=== PATIENT | female | born 1985 | race Caucasian/White ===

== ENCOUNTER → 2016-07-09 | Outpatient (CLI) | payer MEDICAID ==
[~2016-07-09] MED LIST: BENTYL10 M1 PO; BUSPIRONE HCL15 MG PO; CIPRO 500MG TA500 MG PO; CLONAZEPAM 1MG T1 MG PO; CLONAZEPAM0.5 M1 PO; FLAGYL 500MG.500 MG PO; FLEXERIL10 MG PO; HYOSCYAMINE0.375 M2 PO; LITHIUM CARBON300 M2 PO; MONTELUKAST SOD10 MG PO; NICODERM C21 MG/24 H TD; NORCO 325 MG-51 TAB PO; PERCOGESIC1 TAB PO; PHENERGAN 25MG.25 M1 PO; PROMETHAZINE HC25 M1 PO; QUETIAPINE FUM100 M2 PO; QUETIAPINE FUM100 MG PO; SEROQUEL 25MG T25 MG PO; SEROQUEL400 MG PO; TRAMADOL 50MG T50 MG PO; TRAMADOL50 M1 PO; Tri-Sprintec 281 TAB PO; VISTARIL25 M1 PO; ZITHROMAX Z PA250 MG PO; ZOFRAN 8MG TABLE8 MG PO; ZOFRAN ODT4 MG PO
[2016-07-09 15:35] LABS: LYMPH # 1.6 K/mm3 (0.7-4.5)
[2016-07-09 15:41] LABS: HEMOGLOBIN 12.4 g/dL (12.2-16.2)
[2016-07-09 16:12] LABS: ABO BLOOD TYPE AB; RH BLOOD TYPE POSITIVE
[2016-07-11 06:39] LABS: HIV Screen 4th Generation wRfx Non Reactive (Non Reactive)
[2016-07-11 09:38] LABS: Rapid Plasma Reagin, Quant Non Reactive (NonRea<1:1); Rubella Antibodies, IgG <0.90 index (Immune >0.99)
[2016-07-11 10:40] LABS: HBsAg Screen Negative (Negative)
== END ==
LOC: LAB 14:54
PROVIDERS: Nurse Practitioner Obstetrics & Gynecology
DX: Z34.80 Encounter for supervision of other normal pregnancy, unspecified trimester (principal)
CPT/HCPCS: G0432; G6040

== ENCOUNTER → 2016-10-09 | Outpatient (CLI) | payer MEDICAID ==
--- NOTE | 2016-10-09 16:30 | RADIOLOGY REPORT PS360 ---
US PREG COMP: INDICATION: ANATOMY OB US , 20 week gestation evaluation ORDERING PHYSICIAN: Hipolito Quinones MD PATIENT AGE: 31 years TECHNIQUE: ultrasound transabdominal scanning. COMPARISON: No previous relevant studies. FINDINGS: Single viable intrauterine gestation. Cephalic position. Placenta: Anterior placenta grade 1. There is average amount fluid. The cervix appears satisfactory. Closed and measuring 4 cm in length. Complete survey performed and was unremarkable on the submitted images as in PACS. No discrete anomalies identified on survey imaging by technologist. Active fetus. Three-vessel cord with satisfactory umbilical cord insertion. 4- chamber heart noted. Survey of brain & ventricles. Face and neck survey unremarkable. Diaphragm and chest views unremarkable. Abdomen: Both kidneys noted and unremarkable. Stomach noted and satisfactory. Spine: Survey of the spine satisfactory with no anomalies identified nor imaged. Both arms and legs noted. Amniotic Fluid: Adequate. Maternal adnexa: No significant findings. Measurements: Average ultrasound age 21 weeks 0 days. Gestational Age 20 weeks 1 day. Estimated due date by ultrasound age 902/19/2017. Estimated weight 392 grams. BPD = 20 weeks 5 days OFD = 21 weeks 4 days HC = 20 weeks 5 days AC = 20 weeks 2 days FL = 22 weeks 1 day Heart Rate = 150 BPM Cerebellum = 19 weeks 3 days Humerus = 20 weeks 4 days HC/AC is 1.21. CI is 75%. FL/BPD is 78%. FL/AC is 25%. IMPRESSION: Single live fetus at 21 weeks 0 days gestation in cephalic presentation. No obvious anomalies. Anterior placenta without previa. Please see above for detail
[2016-10-09 16:53] LABS: AMPHETAMINES/METAMPHETAMINES NEGATIVE ng/mL (<1000)
[2016-10-17 12:37] LABS: Alprazolam Negative (Cutoff=100); Benzodiazepines Positive ng/mL (Cutoff=100); Clonazepam Positive (.); Clonazepam Confirm 192 ng/mL (Cutoff=100); Flurazepam Negative (Cutoff=100); Lorazepam Negative (Cutoff=100); Midazolam Negative (Cutoff=100); Temazepam Negative (Cutoff=100); Triazolam Negative (Cutoff=100)
== END ==
LOC: RAD 12:14 → LAB 12:14 → RAD 13:00
PROVIDERS: Emergency Medicine; Nurse Practitioner Obstetrics & Gynecology
DX: Z36 Encounter for antenatal screening of mother (principal); Z79.899 Other long term (current) drug therapy
CPT/HCPCS: G0480

== ENCOUNTER → 2017-01-21 | Outpatient (CLI) | payer MEDICAID | LOC: LAB 17:16 | DX: Z34.80 Encounter for supervision of other normal pregnancy, unspecified trimester (principal) ==

== ENCOUNTER 2017-02-19 02:03 | Inpatient (IN) | payer MEDICAID ==
[~2017-02-19] VITALS: Ht 170.2 cm; Wt 97.1 kg
[2017-02-19 06:03] LABS: HEMOGLOBIN 11.1 g/dL (12.2-16.2); LYMPH # 2.1 K/mm3 (0.7-4.5); LYMPH % 22.4 % (10-50.0)
[2017-02-19 06:15] VITALS: BP 128/74
[2017-02-19] MEDS ORDERED: ZANTAC 150150 MG PO (06:25)
[2017-02-19] MEDS ORDERED: FLINTSTONES T100 MCG PO (06:25)
[2017-02-19 06:37] LABS: ABO BLOOD TYPE AB; RH BLOOD TYPE POSITIVE
--- NOTE | 2017-02-19 07:58 | LABOR NOTE ---
Laboring Subjective Subjective Date 02/19/17 Time 0756 Subjective: Pt is having regular contractions Laboring Objective Objective NST: Reactive Contractions: q 2-3 minutes Cervical dilation: 2 Effacement: 75% Station: -2 Membranes are: Artificially ruptured (with clear fluid) Fetus monitoring? Yes Type: External Laboring Assessment Assessment Progressing? Yes Cephalopelvic disproportion? No Problem List: 1. Normal delivery Laboring Plan Plan Anethesia for epidural? Yes Continue to labor down? Yes Plan for ? No Continue to monitor? Yes Start pushing? No at 0758
--- NOTE | 2017-02-19 11:02 | LABOR NOTE ---
Laboring Subjective Subjective Date 02/19/17 Time 1100 Subjective: Pt is having regular contractions Laboring Objective Objective NST: Reactive Contractions: q 2-3 minutes Cervical dilation: 2-3 Effacement: 75% Station: -1 Membranes are: Artificially ruptured (with clear fluid) Fetus monitoring? Yes Type: External Laboring Assessment Assessment Progressing? Yes Cephalopelvic disproportion? No Problem List: 1. Normal delivery Laboring Plan Plan Anethesia for epidural? Yes Continue to labor down? Yes Plan for ? No Continue to monitor? Yes Start pushing? No at 1101
[2017-02-19 11:14] VITALS: BP 130/62
--- NOTE | 2017-02-19 13:37 | LABOR NOTE ---
Laboring Subjective Subjective Date 02/19/17 Time 1335 Subjective: Pt is having regular contractions Laboring Objective Objective NST: Reactive Contractions: q 2-3 minutes Cervical dilation: 4 Effacement: 75% Station: -1 Membranes are: Artificially ruptured Fetus monitoring? Yes Type: External Laboring Assessment Assessment Progressing? Yes Cephalopelvic disproportion? No Problem List: 1. Normal delivery Laboring Plan Plan Anethesia for epidural? Yes Continue to labor down? Yes Plan for ? No Continue to monitor? Yes Start pushing? No at 1332
[2017-02-19 14:42] LABS: AMPHETAMINES/METAMPHETAMINES NEGATIVE ng/mL (<1000)
--- NOTE | 2017-02-19 16:14 | LABOR NOTE ---
Laboring Subjective Subjective Date 02/19/17 Time 1611 Subjective: Pt is having regular contractions Laboring Objective Objective NST: Reactive Contractions: q 2-3 minutes Cervical dilation: 4 Effacement: 75% Station: -1 Membranes are: Artificially ruptured Fetus monitoring? Yes Type: External Laboring Assessment Assessment Progressing? No Cephalopelvic disproportion? Yes Problem List: 1. Normal delivery Laboring Plan Plan Anethesia for epidural? Yes Continue to labor down? Yes Plan for ? Yes Continue to monitor? Yes Start pushing? No Comment: She really has not change her cervix throughout the day. She's got to 4 cm. I'm not sure whether there is pelvic disproportion or possibly the baby is OP. It's also possible that the baby is asynclitic. She is in considerable pain and I don't believe that her epidural is working very well. We will redo her epidural. I've also given her one dose of Stadol 1 mg. It's been almost 6 hours since she reached 4 cm periods is her second baby and since she has not really progressed we will consider a . The nonstress test is reactive and there is no distress at this point in time. We will reexamine her in the next hour or so. at 1617
--- NOTE | 2017-02-19 17:33 | LABOR NOTE ---
Laboring Subjective Subjective Date 02/19/17 Time 1730 Subjective: Pt is having regular contractions Laboring Objective Objective NST: Reactive Contractions: q 2-3 minutes Cervical dilation: 4 Effacement: 75% Station: -1 Membranes are: Artificially ruptured Fetus monitoring? Yes Type: External Laboring Assessment Assessment Progressing? No Cephalopelvic disproportion? Yes Problem List: 1. Fetopelvic disproportion Laboring Plan Plan Anethesia for epidural? Yes Continue to labor down? No Plan for ? Yes Continue to monitor? Yes Start pushing? No Comment: She has really not progress beyond 4 cm all day. She is still very uncomfortable with her epidural despite being bolused multiple times. We will go ahead with a for fetopelvic is proportion. I discussed the risks of surgery that includes bleeding, infection, injuries to the bowel and bladder. We discussed the rare risk of DVT. All questions were answered and consents were signed. at 1737
--- NOTE | 2017-02-19 19:07 | Operative Note ---
Procedure/Operative Record Procedure Date of procedure: 02/19/17 Pre-Op Dx: Fetopelvic disproportion, desire for sterilization Post-Op Dx: Fetopelvic disproportion, desire for sterilization Procedure performed: Primary lower segment transverse section, bilateral salpingectomy Surgeon: Dr. Hipolito Quinones Carriage Dogger(s): Dr. Garza Anesthesia: Otis Ken EBL (ml): 600 Clinical note: She is a 31-year-old 2 para 1 who was 39+ weeks gestational age. She had lots of pressure and occasional contractions and as result of that we elected to augment her labor. She was started on IV oxytocin had her membranes ruptured and really failed to progress beyond 4 cm despite having regular contractions all day long. The baby's head remained high and there was significant molding and the cervix did not change. As result of that we elected to perform a primary lower segment transverse section for fetopelvic disproportion. She also had expressed a desire for sterilization. we were planning to do a tubal in 6 weeks however since we were doing an urgent section we elected to perform her bilateral salpingectomy at the time of . The risk and benefits of surgery as well as the irreversibility of bilateral salpingectomy were discussed with the patient prior to surgery. Operative findings: She delivered a live-born female child at 6:28 PM in the evening of February. The baby had Apgars of 8 at 1 minute and 9 at 5 minutes. PH was 7.37. Tubes and ovaries appeared normal. The uterus itself was quite boggy post delivery consistent with contractions that were not efficient. Operative note: She was taken to the operating room where epidural anesthesia was found be adequate. She was prepped and draped in normal sterile fashion in the supine position with a leftward tilt. A Duckworth catheter was in the bladder. A Pfannenstiel skin incision was made with knife then carried through to the underlying layer of fascia with cautery. The fascia was opened in the midline with cautery and extended laterally using Fernandez scissors. [place] clamps were applied to the superior aspect of the fascial incision which was tented up and the underlying rectus muscles dissected off using cautery. The [place] clamps were then applied to the inferior aspect of the fascial incision which in a similar fashion was tented up and the underlying rectus muscles dissected off using cautery. The rectus muscles were then in the midline, the peritoneum identified, and entered sharply with Metzenbaum scissors. This incision was then extended superiorly and inferiorly with cautery. We had good visualization of the bladder inferiorly. The bladder peritoneum was then opened in the midline and extended laterally using Metzenbaum scissors. A bladder flap was created digitally. The lower blade of the Matt was inserted so as to push the bladder out of the way. Transverse incision was made through the uterine muscle to the amnion. This incision was then extended laterally using fingers traction. The amnion was entered sharply with knife. The 's head was then delivered atraumatically. This was followed by the anterior shoulder and the rest of the infant's body atraumatically. The oropharynx and nasopharynx were bulb suctioned. The was then handed off to Dr. Yost who assigned Apgars of 8 at 1 minute and 9 at 5 minutes. We then obtained cord blood as well as cord pH. The pH was 7.37. Using gentle traction on the cord and countertraction on the fundus I was able to easily deliver the placenta intact. It had a normal three-vessel cord. The uterus was then cleared of clots and debris and exteriorized from the abdominal cavity. The uterine incision was then closed using running 0 Vicryl suture in a locked fashion. A second layer of the same suture was used to imbricate the first layer. The bladder peritoneum was then closed using running 2-0 Vicryl suture in a locked fashion. I then performed a bilateral salpingectomy by first cauterizing through the tube close to the cornua. I then cauterized along the meso salpinx with the side of the blade of the cautery. This was performed all along the nasal salpinx to the fimbriated end of the tube. The tube was thus completely removed. This was similarly performed on the patient's opposite side. It was noted that the uterus was quite boggy so elected perform a B Bergman suture. Using #1 Vicryl suture I took a large bite of tissue just above the incision on the uterus. I passed this over the posterior aspect of the uterus and took 2 large bites posteriorly. I then pass a suture once again anteriorly and took another bite adjacent to the first bite. The suture was then cinched down and tied. The gutters and cul-de-sac were then cleared of clots and debris and the uterus was returned the abdominal cavity. Once again hemostasis was assured. The peritoneum was grasped with Maru clamps and closed using running 2-0 Vicryl suture. The rectus muscles were then reapproximated using running 0 Vicryl suture. The fascia was closed using running #1 Vicryl suture. The subcutaneous tissues were then irrigated with warm water followed by closure Simran's fascia using running 2-0 Monocryl suture. The skin was closed with elliott. I then cleaned the skin with Hibiclens once again. Sterile dressings were applied. She tolerated the procedure well and was taken to the recovery room in excellent condition. All sponges minute and needle counts were correct. Estimate a blood loss was approximately 600 mL. Conplications: None Specimens: Proximal of conception, bilateral fallopian tubes at 0916
--- NOTE | 2017-02-19 19:09 | Anesthesia Record ---
Anesthesia Record Part I Total IV fluids: 1000 EBL (ml): 600 Urine Output: 30 B/P: 125/44 % SaO2: 99 Pulse: 99 Resps: 18 Temp: 98.6 Patient is: Awake, Stable Stable to PACU at: 1905 at 1909
--- NOTE | 2017-02-19 19:10 | Anesthesia Record ---
Anesthesia Record Part II Discharge time: 1934 Destination: OB PACU nurse assessment review? Yes Patient is: Stable Anesthesia complications? No at 1910
[2017-02-19 19:48] VITALS: BP 128/61
[2017-02-20 07:02] LABS: HEMOGLOBIN 9.7 g/dL (12.2-16.2)
--- NOTE | 2017-02-20 07:40 | PHARMACY CLINIC NOTE ---
Patient Demographics Patient Demographics Admission date: 02/19/17 Date: 02/20/17 Time: 0740 Allergies Coded Allergies: Sulfa (Sulfonamide Antibiotics) (Mild, 02/19/17) ibuprofen (Mild, 02/19/17) penicillin G (Mild, 02/19/17) NSAIDS (Non-Steroidal Anti-Inflamma (02/19/17) latex (HIVES/RASH 02/19/17) HEIGHT- FT: 5 IN: 7.00 K.070 VTE General Information Labs: Laboratory Tests 02/20 06 Hematology Hgb (12.2 - 16.2 g/dL) 9.7 L Hct (37.0 - 47.0 %) 28.0 L Disclaimer The following section includes nursing documentation that has been pulled in for pharmacy review. VTE prophylaxis NQF [id number] VTE prophylaxis ordered? Yes Type of prophylaxis/treatment: ICD at 0740
--- NOTE | 2017-02-20 08:47 | ACUTE CARE PROGRESS NOTE (QUA) ---
Progress Notes Subjective Date 02/20/17 Time 0844 Note She is doing well this morning. She is eating and drinking and ambulating. She is breast-feeding. Her pain is resuming well-controlled we will change to a slightly stronger narcotic. Patient/family reports: feeling better, pain Objective Findings Last VS-Temp:98.4 B/P:131/60 Pulse:90 Resp:18 SaO2:100 ROOM AIR Last weight lbs:214 oz:0 K.070 Method:Stated Laboratory Tests 02/20/17 0605: Hgb 9.7 L, Hct 28.0 L 02/19/17 1829: Cord Blood pH 7.38 02/19/17 0907: Opiates Screen NEGATIVE, Urine Methadone Screen NEGATIVE, Barbiturates NEGATIVE, Phencyclidine Screen NEGATIVE, Amphetamines Screen NEGATIVE, Benzodiazepines Screen NEGATIVE, Cocaine Screen NEGATIVE, Marijuana (THC) Screen POSITIVE H Exam General appearance: normal appearance, alert, awake, no acute distress Reviewed: vital signs, lab results Assessment/Plan Problem List 1. Fetopelvic disproportion 2. Delivered by section 3. Tubal ligation status Patient condition Improving, Stable Plan: continue current care, make medication changes This inpt stay is expected to cross 2 MNs from start of care Yes Comments: She is doing well this morning. We will change her pain medicine. We willDISCHARGE HER HOME IN 2 DAYS. at 0846
[2017-02-20 09:30] VITALS: BP 136/70
[2017-02-20 09:40] LABS: URINE BILIRUBIN - DIPSTICK NEGATIVE (NEG); URINE BLOOD NEGATIVE (NEG)
[2017-02-20 09:41] LABS: URINE BILIRUBIN - DIPSTICK NEGATIVE (NEG); URINE BLOOD NEGATIVE (NEG)
[2017-02-20 09:51] LABS: URINE SQUAMOUS CELLS OCC #/hpf (0-5)
[2017-02-20 19:55] VITALS: BP 139/79
--- NOTE | 2017-02-21 08:02 | ACUTE CARE PROGRESS NOTE (QUA) ---
Progress Notes Subjective Date 02/21/17 Time 0801 Note She is doing much better. She is eating and drinking and ambulate eating. Her pain is improving. Continues to have anxiety. I started her on Xanax 1 mg 3 times a day yesterday. Patient/family reports: feeling better, no complaints Objective Findings Last VS-Temp:98.2 B/P:139/79 Pulse:93 Resp:20 SaO2:100 ROOM AIR Last weight lbs:214 oz:0 K.070 Method:Stated Exam General appearance: normal appearance, alert, awake, no acute distress Reviewed: vital signs, lab results Assessment/Plan Problem List 1. Fetopelvic disproportion 2. Delivered by section 3. Tubal ligation status Patient condition Improving, Stable Plan: continue current care This inpt stay is expected to cross 2 MNs from start of care Yes Comments: She seems to be doing a little better this morning. She is still somewhat anxious. Her pain is improved. We will encourage her to ambulate. at 0802
[2017-02-21 08:45] VITALS: BP 131/73
[2017-02-21 20:00] VITALS: BP 150/77
[2017-02-22 08:52] VITALS: BP 138/72
--- NOTE | 2017-02-22 10:24 | ACUTE CARE PROGRESS NOTE (QUA) ---
Progress Notes Subjective Date 02/22/17 Time 1022 Note She is doing well this morning. She is eating and drinking and ambulating. She is bottle and breast-feeding. Her lochia is normal. Her pain is reasonably well- controlled. Patient/family reports: feeling better, no complaints Objective Findings Last VS-Temp:97.9 B/P:138/72 Pulse:81 Resp:18 SaO2:100 ROOM AIR Last weight lbs:214 oz:0 K.070 Method:Stated Exam General appearance: normal appearance, alert, awake, no acute distress Reviewed: vital signs, lab results Assessment/Plan Problem List 1. Fetopelvic disproportion 2. Delivered by section 3. Tubal ligation status Patient condition Improving, Stable Plan: continue current care, initiate discharge plan This inpt stay is expected to cross 2 MNs from start of care Yes Comments: She is doing well this morning. Her baby has staph on a blood culture. The baby will be started on antibiotics. We will discharge her home and she will continue to stay here to look after the baby's as an outpatient at 1023
--- NOTE | 2017-02-22 10:27 | Discharge Summary ---
Discharge Summary Admission date: 02/19/17 Discharge date: 02/22/17 Discharge diagnoses: Term , pelvic disproportion, desire for sterilization Clinical note: She is a 31-year-old 2 now para 2 who was 39 weeks gestational age. She was having lots of pressure and discomfort and as result of that we elected to augment her labor. Course in hospital: She was started on IV oxytocin and had her membrane was ruptured. She really failed to progress beyond 4 cm. This was despite having regular painful contractions throughout the entire day. As result of that fetopelvic disproportion was diagnosed and she was taken for a primary lower segment transverse section. She delivered a live-born female child at 6:20 PM on the evening of February. The baby was a liveborn female child weighing 8 lbs. 6 oz. with Apgars of 8 at 1 minute and 9 at 5 minutes. She also had a bilateral salpingectomy at the time of section. She has done well postoperatively and has remained afebrile throughout her hospitalization. She is eating and drinking and ambulating. She is breast and bottle feeding. Plans for ongoing care: She is discharged home to follow-up in approximately 2 weeks' time. Discharge medications She will continue with her vitamins and iron. She was given a pressure for hydromorphone 2 mg take 1 tablet every 4 hours as needed for pain. DC/follow-up instructions She was given the usual instructions with respect to limiting her activity, driving and sexual activity. She was given instructions with respect to wound care. Condition at discharge Stable and improved at 7700
[2017-02-22] MEDS ORDERED: HYDROMORPHONE2 MG PO (10:28)
== END 2017-02-22 13:30 | disposition home or self-care (01) | DRG 766 ==
LOC: OB 02:03
PROVIDERS: Nurse Practitioner Obstetrics & Gynecology
PROC: 10D00Z1 Extraction of Products of Conception, Low, Open Approach (ICD-10-PCS; principal; 2017-02-19 18:00)
PROC: 0UT70ZZ Resection of Bilateral Fallopian Tubes, Open Approach (ICD-10-PCS; principal; 2017-02-19 18:00)
DX: O65.4 Obstructed labor due to fetopelvic disproportion, unspecified (principal); O61.0 Failed medical induction of labor; Z3A.39 39 weeks gestation of pregnancy; Z37.0 Single live birth
CPT/HCPCS: G0238; J0595

== ENCOUNTER 2017-03-03 14:13 | Emergency (ER) | payer MEDICAID ==
[~2017-03-03] VITALS: Ht 170.2 cm; Wt 86.2 kg
[~2017-03-03 14:13] MED LIST changes: +FLINTSTONES T100 MCG PO; +HYDROMORPHONE2 MG PO; +ZANTAC 150150 MG PO
--- NOTE | 2017-03-03 15:08 | Emergency Room Report ---
History of Present Illness Time Seen by MD Segura Presenting Problem in Triage Pt arrived:Walked Presenting Problem:BILAT SWOLLEN FEET AND HYPERTENSIVE Onset of symptoms date/time:/ or onset unknown for:MEDICAL HX UNKNOWN Treatment Prior to Arrival: IRON ERECTOR Provided by: Sepsis Risk Assessment: Temp: 97.8 B/P: 167/89 MAP: 115 Pulse: 77 Resp: 18 Recent fever? N Clinical Suspician of Infection? N Mental Status: 1 - Regular (Normal Baseline) Sepsis Risk:Low Sepsis Risk Have you (or family members/close friends) recently traveled outside the [place]? N If Yes, where/when: Have you had exposure to infectious disease within the past month? TB? Other? Specify: ALLERGIES Coded Allergies: Sulfa (Sulfonamide Antibiotics) (Mild, 03/03/17) ibuprofen (Mild, 03/03/17) penicillin G (Mild, 03/03/17) NSAIDS (Non-Steroidal Anti-Inflamma (03/03/17) latex (HIVES/RASH 03/03/17) Home Medications Active Scripts Hydromorphone Hcl (Hydromorphone) 2 MG PO Q4HP PRN MODERATE TO SEVERE PAIN #30 TAB Prov: 02/22/17 Reported Medications Clonazepam (Clonazepam 0.5MG) 0.5 MG PO DAILY PRN ANXIETY #30 TAB QUETIAPINE FUMARATE (Quetiapine Fumarate) 300 MG PO QHS Pedi Multivit No.7/Folic Acid (Flintstones Tab Chew) 200 MCG PO DAILY Ranitidine Hcl (Zantac) 150 MG PO BID History Medical History General CAD? No Angina: No [place]: No Hypertension? No Hyperlipidemia? No CHF? No DVT? No PE? No COPD? No Asthma? No Anemia? No GERD? Yes Gastric ulcers? No GI Bleed? No Hernia? Yes Thyroid Problems? No Hypothyroidism? No CVA? No Seizures? Yes Diabetes? No Insulin Dependent: No Insulin Pump: No Home FSBS? No Renal Insuffiency? No End Stage Renal Disease? No UTI? No Stones? No BPH? No GB Disease: No Nephritic Syndrome? No Asplenia? No Hepatitis? No Sickle Cell Disease? No Arthritis? No Migraines? Yes Cataracts? No Glaucoma? No MRSA? No HIV? No TB? No Anxiety? Yes Depression? Yes Cancer? No More? 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 Respiratory no symptoms reported Cardiovascular no symptoms reported Gastrointestinal abdominal pain Genitourinary no symptoms reported. Musculoskeletal no symptoms reported Skin no symptoms reported Psychiatric/Neurological see HPI, anxiety, headache Physical Exam Vital Signs Vital Signs Date Time Temp Pulse Resp B/P Pulse O2 O2 Flow FiO2 Ox Delivery Rate 03/03 1704 72 22 150/86 95 03/03 1545 82 18 154/80 99 03/03 1431 97.8 77 18 167/89 98 Anxious and shaky (Edu GANDHI,[facility]) - WBC >12,000 or <4,000 or 10% bands? 2 or more SIRS Criteria Met? B/P:167/89 MAP:115 Creatinine >2.0? UA output<0.5ml/kg/hr for 2 hrs? Platelet count >100,000? Lactate >2.0mmol/1? INR >1.2 or PTT > than 60 sec? Evidence of Organ Dysfunction? Provider documented clinical suspician of infection? N Sepsis Criteria Count: 0 Sepsis Risk: Low Sepsis Risk 31 years old white female status post 2 weeks ago due to failure to progress. She continues to have abdominal pain no vomiting or diarrhea. She presented to the emergency room with a chief complaint of progressive bilateral leg edema in spite of diuretic therapy prescribed by Dr. Oscar her vice president research. She denies having shortness of breath chest pain. She complains of a headache General Appearance WD/WN, anxious and shaky Eye Exam - bilateral eye normal exam (no eyelid edema), bilateral eye PERRL, bilateral eye EOMI Ear, Nose, Throat hearing grossly normal, normal ENT inspection Neck normal inspection, non-tender, supple, full range of motion Respiratory Status Yes: trachea midline, chest symmetrical, non tender chest. No: respiratory distress. Lung Sounds bilateral: normal breath sounds, lungs clear. Cardiovascular normal exam, regular rate/rhythm, no peripheral edema, no gallop, no JVD, no murmur, no rub, normal peripheral pulses Peripheral Pulses Pulses normal Yes Gastrointestinal soft abdomen with lower abdominal tenderness well-healed C- section scar. rebound tenderness no guarding or rigidity. Back normal inspection, no CVA tenderness, no vertebral tenderness Extremities pedal edema, 3+ pedal edema and 2+ leg edema, no sacral edema. Neurologic alert, body and fender mechanic II-XII nml as tested, normal exam, oriented x 3 Reflexes Reflexes normal Yes Mental status normal mood/affect Skin intact, normal color, warm/dry Medical Decision Making LABS/Meds/Orders Pt receiving controlled substance in ED? No Results/Orders Laboratory Tests 03/03/17 1725: Urine Color STRAW, Urine Appearance CLEAR, Urine pH 7.0, Ur Specific [place] 1.010, Urine Protein NEGATIVE, Urine Ketones NEGATIVE, Urine Blood TRACE-LYSED, Urine Nitrate NEGATIVE, Urine Bilirubin NEGATIVE, Urine Urobilinogen 0.2, Ur Leukocyte Esterase NEGATIVE, Urine WBC OCC, Ur Squamous Epith Cells OCC, Urine Bacteria TRACE, Urine Glucose NEGATIVE 03/03/17 1520: Sodium 141, Potassium 3.1 L, Chloride 106, Carbon Dioxide 27, BUN 7, Creatinine 0.9, Estimated Creat Clear 125, Estimated GFR (MDRD) 74, Glucose 85, Calcium 8.9 , Total Bilirubin 0.7, AST 13 L, ALT 23, Alkaline Phosphatase 103, B- Natriuretic Peptide 123 H, Total Protein 7.1, Albumin 3.4, Globulin 3.7 H, Albumin/Globulin Ratio 0.9 L, PT 11.3, INR 1.05, APTT 27.5, WBC 6.8, RBC 3.59 L, Hgb 10.9 L, Hct 32.4 L, MCV 90.1, RDW 13.1, Plt Count 450 H, MPV 7.4, Gran % 64.4, Gran # 4.4, Lymphocytes % 28.7, Monocytes % 3.3, Eosinophils % 3.3, Basophils % 0.2, Lymphocytes # 2.0, Monocytes # 0.2, Eosinophils # 0.2, Basophils # 0.0, PUBS MCHC 33.7, MCH 30.4 Current Medication Orders Sig/Sheila Start time Last Medication Dose Route Stop Time Status Admin Potassium Chloride 0 .STK-MED ONE 03/03 1701 DC PO Acetaminophen 0 .STK-MED ONE 03/03 1700 DC PO Acetaminophen 650 MG ONCE ONE 03/03 1630 DC 03/03 PO 03/03 1631 1702 Iopamidol 75 ML ONCE ONE 03/03 1630 UNV 03/03 IV 03/03 1631 1608 Potassium Chloride 40 MEQ ONCE ONE 03/03 1630 DC 03/03 PO 03/03 1631 1702 Sodium Chloride 10 ML ONCE ONE 03/03 1630 UNV 03/03 IV 03/03 1631 1608 Sodium Chloride 10 ML PRN PRN 03/03 1515 AC IV 03/04 1515 Orders Procedure Date/time Status DIET-NOTHING BY MOUTH 03/[address] ABD & PELVIS W/ CONTRAST 03/03 1548 Active IV SALINE LOCK 03/03 1515 Active SERUM , QUAL 03/03 1513 Complete ELECTROCARDIOGRAM REQUEST 03/[address] ABD/PELVIS REQ 03/03 1510 Complete URINALYSIS/COMPLETE 03/03 1510 Complete PARTIAL THROMBOPLASTIN TIME 03/03 1510 Complete PROTHROMBIN TIME 03/03 1510 Complete CBC WITH AUTO DIFF 03/03 151 Complete CHEM 12 PROFILE 03/03 1510 Complete BRAIN NATRIURETIC PEPTIDE 03/03 1510 Complete 12 LEAD EKG-MAURO (INITIAL) 03/03 UNK Active CM/EKG CM/EKG EKG rate, NSR, rhythm, no evid. of ischemic chgs, no ectopy, normal QRS, normal MD, normal EKG, no EKG for comparison, non-spec. ST/Twave chgs, ST elevation, ST depression, LBBB, RBBB, ectopy, abnormal Q waves, normal sinus rhythm 63/m no acute findings Departure Departure Time of Disposition 1738 Disposition DC Home or Self Care(routine) Clinical Impression Primary Impression: Leg edema Secondary Impressions: Hypertension Condition STABLE Referrals Joni GANDHI,[facility]. Additional Instructions I discussed with Dr Bellamy her Vitals, exam and CT scan. She will be given [place] untll seen by him in 2 days . She was crying and tearful during her ED stay and I was told B Dr Bellamy and her that this is her normal. Discharge Counseling Counseled pt/family regarding diagnosis, test results, medications/RX, home care, follow up needs Prescriptions Current Visit Scripts Spironolactone (Aldactone) 25 MG NG DAILY #5 TAB ED Critical Care Critical Care No If Critical Care minutes are documented, the time involved in the performance of seperately reportable procedures was not counted toward critical care time documented. I directly delivered medical care to this critically ill and/or injured patient. Timely evaluation and treatment was necessary to address the significant organ system(s) dysfunction present in this patient. at [id number]
--- NOTE | 2017-03-03 15:08 | Emergency Room Report ---
History of Present Illness Time Seen by MD Segura Presenting Problem in Triage Pt arrived:Walked Presenting Problem:BILAT SWOLLEN FEET AND HYPERTENSIVE Onset of symptoms date/time:/ or onset unknown for:MEDICAL HX UNKNOWN Treatment Prior to Arrival: QA CONSULTANT Provided by: Sepsis Risk Assessment: Temp: 97.8 B/P: 167/89 MAP: 115 Pulse: 77 Resp: 18 Recent fever? N Clinical Suspician of Infection? N Mental Status: 1 - Regular (Normal Baseline) Sepsis Risk:Low Sepsis Risk Have you (or family members/close friends) recently traveled outside the [place]? N If Yes, where/when: Have you had exposure to infectious disease within the past month? TB? Other? Specify: ALLERGIES Coded Allergies: Sulfa (Sulfonamide Antibiotics) (Mild, 03/03/17) ibuprofen (Mild, 03/03/17) penicillin G (Mild, 03/03/17) NSAIDS (Non-Steroidal Anti-Inflamma (03/03/17) latex (HIVES/RASH 03/03/17) Home Medications Active Scripts Hydromorphone Hcl (Hydromorphone) 2 MG PO Q4HP PRN MODERATE TO SEVERE PAIN #30 TAB Prov: 02/22/17 Reported Medications Clonazepam (Clonazepam 0.5MG) 0.5 MG PO DAILY PRN ANXIETY #30 TAB QUETIAPINE FUMARATE (Quetiapine Fumarate) 300 MG PO QHS Pedi Multivit No.7/Folic Acid (Flintstones Tab Chew) 200 MCG PO DAILY Ranitidine Hcl (Zantac) 150 MG PO BID History Medical History General CAD? No Angina: No PR: No Hypertension? No Hyperlipidemia? No CHF? No DVT? No PE? No COPD? No Asthma? No Anemia? No GERD? Yes Gastric ulcers? No GI Bleed? No Hernia? Yes Thyroid Problems? No Hypothyroidism? No CVA? No Seizures? Yes Diabetes? No Insulin Dependent: No Insulin Pump: No Home FSBS? No Renal Insuffiency? No End Stage Renal Disease? No UTI? No Stones? No BPH? No GB Disease: No Nephritic Syndrome? No Asplenia? No Hepatitis? No Sickle Cell Disease? No Arthritis? No Migraines? Yes Cataracts? No Glaucoma? No MRSA? No HIV? No TB? No Anxiety? Yes Depression? Yes Cancer? No More? 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 Respiratory no symptoms reported Cardiovascular no symptoms reported Gastrointestinal abdominal pain Genitourinary no symptoms reported. Musculoskeletal no symptoms reported Skin no symptoms reported Psychiatric/Neurological see HPI, anxiety, headache Physical Exam Vital Signs Vital Signs Date Time Temp Pulse Resp B/P Pulse O2 O2 Flow FiO2 Ox Delivery Rate 03/03 1704 72 22 150/86 95 03/03 1545 82 18 154/80 99 03/03 1431 97.8 77 18 167/89 98 Anxious and shaky (Edu GANDHI,[facility]) - WBC >12,000 or <4,000 or 10% bands? 2 or more SIRS Criteria Met? B/P:167/89 MAP:115 Creatinine >2.0? UA output<0.5ml/kg/hr for 2 hrs? Platelet count >100,000? Lactate >2.0mmol/1? INR >1.2 or PTT > than 60 sec? Evidence of Organ Dysfunction? Provider documented clinical suspician of infection? N Sepsis Criteria Count: 0 Sepsis Risk: Low Sepsis Risk 31 years old white female status post 2 weeks ago due to failure to progress. She continues to have abdominal pain no vomiting or diarrhea. She presented to the emergency room with a chief complaint of progressive bilateral leg edema in spite of diuretic therapy prescribed by Dr. Oscar her director nurses' registry. She denies having shortness of breath chest pain. She complains of a headache General Appearance WD/WN, anxious and shaky Eye Exam - bilateral eye normal exam (no eyelid edema), bilateral eye PERRL, bilateral eye EOMI Ear, Nose, Throat hearing grossly normal, normal ENT inspection Neck normal inspection, non-tender, supple, full range of motion Respiratory Status Yes: trachea midline, chest symmetrical, non tender chest. No: respiratory distress. Lung Sounds bilateral: normal breath sounds, lungs clear. Cardiovascular normal exam, regular rate/rhythm, no peripheral edema, no gallop, no JVD, no murmur, no rub, normal peripheral pulses Peripheral Pulses Pulses normal Yes Gastrointestinal soft abdomen with lower abdominal tenderness well-healed C- section scar. rebound tenderness no guarding or rigidity. Back normal inspection, no CVA tenderness, no vertebral tenderness Extremities pedal edema, 3+ pedal edema and 2+ leg edema, no sacral edema. Neurologic alert, hearing instrument specialist II-XII nml as tested, normal exam, oriented x 3 Reflexes Reflexes normal Yes Mental status normal mood/affect Skin intact, normal color, warm/dry Medical Decision Making LABS/Meds/Orders Pt receiving controlled substance in ED? No Results/Orders Laboratory Tests 03/03/17 1725: Urine Color STRAW, Urine Appearance CLEAR, Urine pH 7.0, Ur Specific [place] 1.010, Urine Protein NEGATIVE, Urine Ketones NEGATIVE, Urine Blood TRACE-LYSED, Urine Nitrate NEGATIVE, Urine Bilirubin NEGATIVE, Urine Urobilinogen 0.2, Ur Leukocyte Esterase NEGATIVE, Urine WBC OCC, Ur Squamous Epith Cells OCC, Urine Bacteria TRACE, Urine Glucose NEGATIVE 03/03/17 1520: Sodium 141, Potassium 3.1 L, Chloride 106, Carbon Dioxide 27, BUN 7, Creatinine 0.9, Estimated Creat Clear 125, Estimated GFR (MDRD) 74, Glucose 85, Calcium 8.9 , Total Bilirubin 0.7, AST 13 L, ALT 23, Alkaline Phosphatase 103, B- Natriuretic Peptide 123 H, Total Protein 7.1, Albumin 3.4, Globulin 3.7 H, Albumin/Globulin Ratio 0.9 L, PT 11.3, INR 1.05, APTT 27.5, WBC 6.8, RBC 3.59 L, Hgb 10.9 L, Hct 32.4 L, MCV 90.1, RDW 13.1, Plt Count 450 H, MPV 7.4, Gran % 64.4, Gran # 4.4, Lymphocytes % 28.7, Monocytes % 3.3, Eosinophils % 3.3, Basophils % 0.2, Lymphocytes # 2.0, Monocytes # 0.2, Eosinophils # 0.2, Basophils # 0.0, PUBS MCHC 33.7, MCH 30.4 Current Medication Orders Sig/Sheila Start time Last Medication Dose Route Stop Time Status Admin Potassium Chloride 0 .STK-MED ONE 03/03 1701 DC PO Acetaminophen 0 .STK-MED ONE 03/03 1700 DC PO Acetaminophen 650 MG ONCE ONE 03/03 1630 DC 03/03 PO 03/03 1631 1702 Iopamidol 75 ML ONCE ONE 03/03 1630 UNV 03/03 IV 03/03 1631 1608 Potassium Chloride 40 MEQ ONCE ONE 03/03 1630 DC 03/03 PO 03/03 1631 1702 Sodium Chloride 10 ML ONCE ONE 03/03 1630 UNV 03/03 IV 03/03 1631 1608 Sodium Chloride 10 ML PRN PRN 03/03 1515 AC IV 03/04 1515 Orders Procedure Date/time Status DIET-NOTHING BY MOUTH 03/[address] ABD & PELVIS W/ CONTRAST 03/03 1548 Active IV SALINE LOCK 03/03 1515 Active SERUM , QUAL 03/03 1513 Complete ELECTROCARDIOGRAM REQUEST 03/[address] ABD/PELVIS REQ 03/03 1510 Complete URINALYSIS/COMPLETE 03/03 1510 Complete PARTIAL THROMBOPLASTIN TIME 03/03 1510 Complete PROTHROMBIN TIME 03/03 1510 Complete CBC WITH AUTO DIFF 03/03 151 Complete CHEM 12 PROFILE 03/03 1510 Complete BRAIN NATRIURETIC PEPTIDE 03/03 1510 Complete 12 LEAD EKG-MAURO (INITIAL) 03/03 UNK Active CM/EKG CM/EKG EKG rate, NSR, rhythm, no evid. of ischemic chgs, no ectopy, normal QRS, normal [place], normal EKG, no EKG for comparison, non-spec. ST/Twave chgs, ST elevation, ST depression, LBBB, RBBB, ectopy, abnormal Q waves, normal sinus rhythm 63/m no acute findings Departure Departure Time of Disposition 1738 Disposition DC Home or Self Care(routine) Clinical Impression Primary Impression: Leg edema Secondary Impressions: Hypertension Condition STABLE Referrals Joni GANDHI,[facility]. Additional Instructions I discussed with Dr Bellamy her Vitals, exam and CT scan. She will be given [place] untll seen by him in 2 days . She was crying and tearful during her ED stay and I was told B Dr Bellamy and her that this is her normal. Discharge Counseling Counseled pt/family regarding diagnosis, test results, medications/RX, home care, follow up needs Prescriptions Current Visit Scripts Spironolactone (Aldactone) 25 MG NG DAILY #5 TAB ED Critical Care Critical Care No If Critical Care minutes are documented, the time involved in the performance of seperately reportable procedures was not counted toward critical care time documented. I directly delivered medical care to this critically ill and/or injured patient. Timely evaluation and treatment was necessary to address the significant organ system(s) dysfunction present in this patient. at [id number]
[2017-03-03 15:40] LABS: HEMOGLOBIN 10.9 g/dL (12.2-16.2); LYMPH % 28.7 % (10-50.0)
[2017-03-03 17:31] LABS: URINE BILIRUBIN - DIPSTICK NEGATIVE (NEG); URINE BLOOD TRACE-LYSED (NEG)
[2017-03-03 17:38] LABS: URINE SQUAMOUS CELLS OCC #/hpf (0-5)
[2017-03-03] MEDS ORDERED: ALDACTONE25 MG NG (17:42)
[2017-03-03 17:46] VITALS: BP 148/90
--- NOTE | 2017-03-03 21:18 | RADIOLOGY REPORT PS360 ---
CT ABD PELVIS W/ CONTRAST CLINICAL INDICATION: Abdominal pain, lower abdominal pain with bilateral leg edema ABDOMINAL PAIN AND BILATERAL LEG EDEMA ORDERING PHYSICIAN: Batool Sorensen MD PATIENT AGE: 31 years COMPARISON: 06/09/2016 TECHNIQUE: Axial images obtained with sagittal and coronal reformats. PROCEDURE: Oral Contrast: None IV Contrast: 75 mL [id number]. FINDINGS: Images of the lung bases show a small left-sided pleural effusion with mild loculation posterior laterally. The liver, spleen, adrenal glands, and pancreas are unremarkable. There is mild thickening of the gallbladder wall which is nonspecific. No biliary dilatation or radio opaque calculi. No renal calculi or hydronephrosis. No ureteral calculi. There is mild thickening of the wall of the ascending colon with minimal infiltration of the pericolic fat which may be seen with colitis. The appendix is not well delineated. No secondary signs of appendicitis. There are multiple unopacified bowel are present in the pelvis which could obscure or mimic pathology. The right adnexa somewhat obscured by the unopacified bowel. There is a small amount fluid in the cul-de-sac. There is mild prominence of the low density changes of the endometrium No evidence of diverticulitis. No acute bony anomalies. There is soft tissue thickening/edema of the periumbilical region and along the lower abdomen laterally on both sides. IMPRESSION: 1. Mild thickening of the wall was draining of the pericolic fat in the ascending colon region consistent with colitis. 2. Multiple unopacified small bowel loops in the pelvis and right adnexal area which could obscure or mimic pathology. If symptoms persist, consider repeating exam with both IV and oral contrast. 3. Small amount fluid in cul-de-sac with mild prominence of the low density changes of the endometrium. Pelvic ultrasound may be of further value clinically warranted
== END 2017-03-03 17:50 | disposition home or self-care (01) ==
LOC: ER 14:13
PROVIDERS: Emergency Medicine
DX: R22.43 Localized swelling, mass and lump, lower limb, bilateral (principal); I10 Essential (primary) hypertension; Z88.2 Allergy status to sulfonamides; Z88.0 Allergy status to penicillin; Z88.6 Allergy status to analgesic agent; K21.9 Gastro-esophageal reflux disease without esophagitis; F41.8 Other specified anxiety disorders; Z72.0 Tobacco use; R51 Headache
CPT/HCPCS: Q9967